=== PATIENT | female | born 1975 | race Caucasian/White ===

== ENCOUNTER → 2017-04-08 16:30 | Outpatient (CLI) | payer OTHER, SELFPAY ==
--- NOTE | 2017-04-08 16:37 | RAD_ITS ---
STUDY: X-RAY - LUMBAR SPINE REASON FOR EXAM: Female, 42 years old. Low back pain TECHNIQUE: 5 view(s) of the lumbar spine were obtained. COMPARISON: None FINDINGS: Normal lumbar lordosis. There is no substantial scoliosis. There is a normal alignment of the vertebrae. Stool throughout the colon. There is multilevel endplate spondylosis of the lumbar vertebrae. Normal disc space heights. The soft tissue structures are unremarkable. RAD/L/S Spine Min 4 Views IMPRESSION: There is endplate spondylosis of the vertebral body. Electronically Signed: Uriel Love MD at 16:59 EST , Service support ,
== END ==
PROVIDERS: Family Provider Family Medicine; PCP Family Medicine; Visit Provider Family Medicine
DX: M54.5 Low back pain (principal)
CPT/HCPCS: 72110

== ENCOUNTER → 2017-04-17 10:52 | Outpatient (CLI) | payer OTHER, SELFPAY ==
--- NOTE | 2017-04-17 11:01 | VDLE_ITS ---
Reason For Study: LEG PAIN AND SWELLING RIGHT LEFT GSV is normal. CFV is compressible, spontaneous, phasic, CFV is compressible, spontaneous, phasic, competent, and demonstrates normal competent and demonstrates normal augmentation. augmentation. FV is compressible, spontaneous, phasic, competent and demonstrates normal augmentation. POP V is compressible, spontaneous, phasic, competent and demonstrates normal augmentation. T/P Trunk is compressible. PTV is compressible. RT PerV is compressible. Procedure Exam performed in department. A preliminary report was called and/or faxed to Dr. Frederick. Interpretation Summary Deep veins of the right lower extremity are patent and compressible segmentally. There is no evidence of right lower extremity deep vein thrombosis. Valvular competence appears intact within the proximal deep venous system on the right . The right greater saphenous vein appears patent and compressible segmentally. Ordering Physician: Cyn Frederick Referring Physician: Cyn Frederick Performed By: Rayne Vines RVT
== END ==
PROVIDERS: Family Provider Family Medicine; PCP Family Medicine; Visit Provider Family Medicine
DX: M79.604 Pain in right leg (principal); R60.9 Edema, unspecified
CPT/HCPCS: 93971

== ENCOUNTER → 2017-05-21 11:21 | Outpatient (CLI) | payer OTHER, SELFPAY ==
[2017-05-22 16:05] LABS: ALB/GLOB Ratio 0.8 RATIO (0.9-2.4); AST(SGOT) 25 U/L (15-37); Alanine Aminotransfer ALT/SGPT 39 U/L (13-56); Albumin, Serum 3.2 g/dL (3.2-5.0); Alkaline Phosphatase 79 U/L (45-117); Anion Gap 7 (5-15); BUN 14 mg/dL (7-18); BUN/Creat Ratio 16.1 RATIO (10-20); Calcium,Total 8.4 mg/dL (8.5-10.1); Chloride 101 mmol/L (98-107); Cholesterol 170 mg/dL (200); Creatinine, Serum 0.87 mg/dL (0.55-1.02); EST Glomerular Filtration Rate 75 mL/min (>60); Est Glom Filt Rate - Afr Amer 91 mL/min (>60); Globulin 3.9 g/dL (2.2-4.2); Glucose 98 mg/dL (74-106); High Density Lipoprotein 52 mg/dL; Potassium 3.8 mmol/L (3.5-5.1); Protein, Total 7.1 g/dL (6.4-8.2); Sodium Level 137 mmol/L (136-145); Triglycerides 99 mg/dL; Very Low Density Lipoprotein 20 mg/dL (5-40)
[2017-05-22 16:14] LABS: Absolute Lymphocyte Count 2.11 X10^3/ul (0.83-4.51); Absolute Neutrophil Count 7.4 X10^3/uL (2.0-7.7); Basophil# 0.02 X10^3/uL; Basophil% 0.2 % (0-1); Eosinophil# 0.15 X10^3/uL; Eosinophils% 1.4 % (0-5); Hemoglobin 12.8 g/dl (12.0-15.0); Lymphocyte # 2.11 X10^3/ul (4.0); Lymphocyte % 20.1 % (19-41); Mean Corp Hgb Conc 32.8 g/gl (32-36); Mean Corpuscular Volume 88.4 fL (81-99); Mean Platelet Vol. 10.9 fl (6.2-12.0); Monocyte# 0.76 X10^3/uL; Monocyte% 7.2 % (0-10); Neutrophil % 70.6 % (47-70); Platelet Count 281 K/mm3 (150-450); RBC Distribution Width CV 13.3 % (11.6-14.6); RBC Distribution Width SD 42.8 fl (35.1-43.9); Red Blood Count 4.41 M/mm3 (4.2-5.4); White Blood Count 10.5 K/mm3 (4.4-11.0)
[2017-05-22 16:19] LABS: POSITIVE COUNT NO; POSITIVE DIFFERENTIAL NO; POSITIVE MORPHOLOGY NO
== END ==
PROVIDERS: Family Provider Family Medicine; PCP Family Medicine; Visit Provider Family Medicine
DX: I10 Essential (primary) hypertension (principal)
CPT/HCPCS: 36415; 80053; 80061; 85025

== ENCOUNTER 2017-05-22 10:00 | Outpatient (RCR) | payer OTHER, SELFPAY ==
--- NOTE | 2017-04-28 08:57 | HP.PTEVAL_ITS ---
Patient's Visit Information CORTEZ HART is a 42 year old F referred to Physical Therapy by DO ALEXIS Rosario with a diagnosis of LBP. Date of Evaluation: 04/28/17 Physical Therapist: Chayo Mcgraw - Visit Plan Frequency: 2x /Week Duration: 4 Weeks Plan: 2X/ week for 4 weeks for R leg pull, piriformis stretches, core stability , functional activities with HEP - Subjective Subjective: Pt reports that she has had back pain for about 5 months. If she sits or stands for a long period of time. If she is out walking the dog she has to stop and stretch. She went to the Chiropractor and she did adjustments and electro therapy and that did not help at all. It did not make it worse. She can sit for about 15 min and then has to change position. She can stand for about 30 min (standing or walking around). 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 She has no leg symptoms. No leg weakness or N&T. She is sleeping for the most part at night but the worst part is laying down at night. They did do an x-ray and it showed some arthritic changes. She walks almost everyday. Pain was not as frequent with steroids but still had the pain. - Pain Back pain Pain Intensity (Out of 10): 5 Pain Intensity Range: 9 - Objective Gait: WBOS with gait... heels not touching. Normal gait pattern. LE MMT: B hip flex 4/5, B knee ext 4/5, B knee flexion 4/5 B, B hip abd 4/5, full ROM bridge. R leg is longer than the L leg. Shot gun X 2 did not change the significant difference in leg length. Did R leg pull and B manual piriformis stretches and pt did feel better after the above with gait. Trunk AROM: flexion 75%, Ext 100%, Rot B 75%, SB B 75%. Patellar DTR's 2+/3 - Goals Goal 1:: I HEP Goal Time Frame: 4-6 Weeks Goal 2:: Decrease back pain with sitting or standing to 2/10 Goal Time Frame: 4-6 Weeks Goal 3:: Be able to walk the Dog for greater than 30 min without having to sit due to back pain. Goal Time Frame: 4-6 Weeks - Rehabilitation Potential Rehabilitation Potential: Good - Anticipated Interventions Patient/Client Instruction: Educate patient on: Condition, Plan of Care For the Purpose of:: To decrease pain Therapeutic Exercise to Include: Strength training, Body mechanics, Postural training, Flexibilty training, Passive ROM, Active ROM, Dynamic Lumbar Stabilization For the Purpose of:: To decrease pain, To increase ROM, To improve nutrient delivery to tissue, To improve muscle performance and motor function, To improve ability to perform ADL's, To increase tolerance to activity/condition/ position, To improve ability of physical actions for home/community/work/leisure , To improve health of tissue, To decrease soft tissue restriction, To improve health and function Manual Therapy Techniques to Include: Mobilization, Soft tissue mobilization For the Purpose of:: To decrease pain, To increase ROM, To improve muscle performance and motor function, To improve ability to perform ADL's, To increase tolerance to activity/condition/position, To improve gait and locomotor functions, To improve health of tissue, To decrease soft tissue restriction, To increase flexibility/ROM IF ES: Yes Cryotherapy (ice pack, ice massage): Yes Thermo therapy (hot pack): Yes Ultrasound (thermal/non thermal): Yes For the Purpose of:: To decrease pain, To decrease swelling/inflammation, To increase ROM, To improve nutrient delivery to tissue Thank you for the opportunity to evaluate your patient. For Medicare and Medicare HMO plans, please review the plan of care and approve it. It will need to be FAXED BACK to us at [phone] for Medicare purposes. Please let me know if there are questions or concerns regarding this plan of care. Physician Signature: Date:
--- NOTE | 2017-07-25 14:08 | HP.PTDCNRP_ITS ---
HP - Discharge Summary (1) - Patient Information CORTEZ HART was seen in my office for initial evaluation on 04/28/17. The following Plan of Care was established for this patient: Initial Frequency: 2x /Week Initial Duration: 4 Weeks - Anticipated Interventions Patient/Client Instruction: Educate patient on: Condition, Plan of Care For the Purpose of:: To decrease pain Therapeutic Exercise to Include: Strength training, Body mechanics, Postural training, Flexibilty training, Passive ROM, Active ROM, Dynamic Lumbar Stabilization For the Purpose of:: To decrease pain, To increase ROM, To improve nutrient delivery to tissue, To improve muscle performance and motor function, To improve ability to perform ADL's, To increase tolerance to activity/condition/ position, To improve ability of physical actions for home/community/work/leisure , To improve health of tissue, To decrease soft tissue restriction, To improve health and function Manual Therapy Techniques to Include: Mobilization, Soft tissue mobilization For the Purpose of:: To decrease pain, To increase ROM, To improve muscle performance and motor function, To improve ability to perform ADL's, To increase tolerance to activity/condition/position, To improve gait and locomotor functions, To improve health of tissue, To decrease soft tissue restriction, To increase flexibility/ROM IF ES: Yes Cryotherapy (ice pack, ice massage): Yes Thermo therapy (hot pack): Yes Ultrasound (thermal/non thermal): Yes For the Purpose of:: To decrease pain, To decrease swelling/inflammation, To increase ROM, To improve nutrient delivery to tissue This patient was last seen in our office 05/22/17. Pertinent comments regarding their Physical therapy will appear below: DC PT as pt did not reschedule At this point I will be discontinuing this patient from physical therapy. I would be happy to see this patient again in the future if found appropriate by the physician. Thank you! Chayo Mcgraw
== END 2017-05-22 19:00 | disposition home or self-care (01) ==
LOC: PT 10:00
PROVIDERS: Family Provider Family Medicine; PCP Family Medicine; Visit Provider Family Medicine
DX: M54.5 Low back pain (principal)
CPT/HCPCS: 97110; 97161

== ENCOUNTER → 2017-07-04 20:13 | Outpatient (CLI) | payer OTHER, SELFPAY | PROVIDERS: Family Provider Family Medicine; PCP Family Medicine; Visit Provider Family Medicine | DX: G47.10 Hypersomnia, unspecified (principal); E66.01 Morbid (severe) obesity due to excess calories; R60.0 Localized edema | CPT/HCPCS: 95810 ==

== ENCOUNTER → 2017-07-11 15:40 | Outpatient (CLI) | payer OTHER, SELFPAY ==
[2017-07-11 17:30] LABS: Anion Gap 8 (5-15); BUN 13 mg/dL (7-18); BUN/Creat Ratio 11.2 RATIO (10-20); Calcium,Total 8.7 mg/dL (8.5-10.1); Chloride 101 mmol/L (98-107); Creatinine, Serum 1.16 mg/dL (0.55-1.02); EST Glomerular Filtration Rate 54 mL/min (>60); Est Glom Filt Rate - Afr Amer 65 mL/min (>60); Glucose 150 mg/dL (74-106); Potassium 3.3 mmol/L (3.5-5.1); Sodium Level 139 mmol/L (136-145)
== END ==
PROVIDERS: Family Provider Family Medicine; PCP Family Medicine; Visit Provider Family Medicine
DX: I10 Essential (primary) hypertension (principal)
CPT/HCPCS: 36415; 80048

== ENCOUNTER → 2017-07-18 20:11 | Outpatient (CLI) | payer OTHER, SELFPAY | PROVIDERS: Family Provider Family Medicine; PCP Family Medicine; Visit Provider Family Medicine | DX: G47.10 Hypersomnia, unspecified (principal); R60.0 Localized edema; E66.01 Morbid (severe) obesity due to excess calories; R60.9 Edema, unspecified | CPT/HCPCS: 95811 ==

== ENCOUNTER → 2017-08-02 13:37 | Outpatient (CLI) | payer OTHER, SELFPAY ==
--- NOTE | 2017-08-02 13:37 | DT_ITS ---
This patient was seen during an EMR downtime July 28, 2017 - August 04, 2017. This patient may have a combination of paper and electronic documentation or all paper documentation. All documentation is viewable within the e-chart portion of [facility] for each patient visit.
[2017-08-05 01:40] LABS: Potassium 3.4 mmol/L (3.5-5.1)
== END ==
PROVIDERS: Family Provider Family Medicine; PCP Family Medicine; Visit Provider Family Medicine
DX: E87.6 Hypokalemia (principal)
CPT/HCPCS: 36415; 84132

== ENCOUNTER 2018-07-07 16:47 | Emergency (ER) | payer OTHER, SELFPAY ==
[2018-07-07 16:49] VITALS: BP 164/82; PULSE 79; RESP 18; TEMP 36.1; O2SAT 98; BMI 40.8
--- NOTE | 2018-07-07 17:04 | CT_ITS ---
STUDY: CT BRAIN WITHOUT CONTRAST REASON FOR EXAM: Female, 43 years old. Dizziness RADIATION DOSAGE (If Supplied By Facility): DLP = ( 779.24 ) mGycm TECHNIQUE: Transaxial CT imaging of the brain was performed without administration of intravenous contrast material. Individualized dose optimization techniques were used for this CT. COMPARISON: None. FINDINGS: There is no acute bleed or infarct. There are normal white matter tracts. The ventricles are normal in configuration. There is no hydrocephalus. The visualized paranasal sinuses are clear. The mastoid air cells are well aerated. There is no skull fracture. CT/Brain/Head without Contrast IMPRESSION: No acute intracranial abnormality. Electronically Signed: Wally Hair, at 17:43 EDT Tel , Service support ,
--- NOTE | 2018-07-07 17:05 | RAD_ITS ---
STUDY: X-RAY CHEST REASON FOR EXAM: Female, 43 years old. Chest pain TECHNIQUE: PA and lateral views of the chest COMPARISON: None. FINDINGS: The lungs are clear. There are no pleural effusions. There is no pneumothorax. The heart is normal in size. The visualized osseous structures are within normal limits. RAD/Chest PA and Lateral IMPRESSION: No acute thoracic pathology. Electronically Signed: Wally Hair, at 18:00 EDT Tel , Service support ,
--- NOTE | 2018-07-07 17:05 | EKG12_ITS ---
Test Reason : HTN Blood Pressure : / mmHG Vent. Rate : 069 BPM Atrial Rate : 069 BPM P-R Int : 154 ms QRS Dur : 088 ms QT Int : 424 ms P-R-T Axes : 057 045 008 degrees QTc Int : 454 ms Normal sinus rhythm Normal ECG Confirmed by AN RODRIGUEZ ([id number]), scientific publications editor MARIELLA PARSON ([id number]) on 07/13/2018 3:31:58 PM Referred By: CANDELARIA Confirmed By:AN RODRIGUEZ
--- NOTE | 2018-07-07 17:18 | ED.DCSUM_ITS ---
- ER Visit Summary Date of Service: 07/07/18 Chief Complaint: Hypertension, dizziness History of Present Illness: The patient is a 43 F who noted mild vertigo symptoms this morning. The school nurse checked her blood pressure throughout the day. Readings are 140/105, 171/115, 158/100, 190/99. Patient states that her vertigo is currently improved which is a mild headache and some nausea. Patient does have a history of hypertension and takes hydrochlorothiazide 12.5 mg. There has not been any recent changes to her medication and she did take her dose this morning. Physical Examination: Vital signs significant for blood pressure of 164/82, otherwise unremarkable. Patient sitting upright in bed in no acute distress. Heart is regular rate and rhythm. Lung sounds are clear. Abdomen is soft nontender. Neuro exam is unremarkable. Test Results: EKG is sinus at 69 with no sign of acute ischemia. CBC and chemistry studies normal. Two-view chest x-ray shows no acute pathology. CT the head shows no acute abnormality. Emergency Department Course and Treatment: On repeat evaluation blood pressure is 142/71 with a heart rate of 78. She reports very mild headache. She be given some Tylenol. She will keep track of her blood pressures over the next several days and take this log to her doctor with her. Treatment Plan: [] Disposition: Discharge Impression: 1. Hypertension, improving 2. Mild cephalgia This note was generated with [employer] dictation software. It may contain incorrect words, spelling, and punctuation that were not noted in review of the chart prior to signing ED Disposition - Plan for ED Patient: Disposition: Home or Assisted Living Instructions: ED HTN Established Referrals: Asuncion Ordaz MD [Family Provider] - 1 Week
[2018-07-07] MEDS: 0.9% Normal Saline 1,000 ML 150 ML IV (17:20)
[2018-07-07 17:32] LABS: Absolute Lymphocyte Count 2.39 X10^3/ul (0.83-4.51); Absolute Neutrophil Count 5.9 X10^3/uL (2.0-7.7); Basophil# 0.02 X10^3/uL; Basophil% 0.2 % (0-1); Eosinophil# 0.14 X10^3/uL; Eosinophils% 1.5 % (0-5); Hemoglobin 12.7 g/dl (12.0-15.0); Lymphocyte # 2.39 X10^3/ul (4.0); Lymphocyte % 26.2 % (19-41); Mean Corp Hgb Conc 32.6 g/gl (32-36); Mean Corpuscular Hgb 28.2 pg (27.0-32.0); Mean Corpuscular Volume 86.5 fL (81-99); Mean Platelet Vol. 9.9 fl (6.2-12.0); Monocyte# 0.62 X10^3/uL; Monocyte% 6.8 % (0-10); Neutrophil # 5.92 X10^3/uL (2.7-7.7); Neutrophil % 64.9 % (47-70); Platelet Count 331 K/mm3 (150-450); RBC Distribution Width CV 13.9 % (11.6-14.6); RBC Distribution Width SD 43.8 fl (35.1-43.9); Red Blood Count 4.51 M/mm3 (4.2-5.4); White Blood Count 9.1 K/mm3 (4.4-11.0)
[2018-07-07 17:39] LABS: POSITIVE COUNT NO; POSITIVE DIFFERENTIAL NO; POSITIVE MORPHOLOGY NO
[2018-07-07 17:55] LABS: Anion Gap 8 (5-15); BUN 14 mg/dL (7-18); Calcium,Total 8.8 mg/dL (8.5-10.1); Chloride 102 mmol/L (98-107); Creatinine, Serum 0.88 mg/dL (0.55-1.02); EST Glomerular Filtration Rate 74 mL/min (>60); Est Glom Filt Rate - Afr Amer 90 mL/min (>60); Estimated Creatinine Clearance 75.58 ml/min; Glucose 101 mg/dL (74-106); Potassium 3.6 mmol/L (3.5-5.1); Sodium Level 139 mmol/L (136-145)
[2018-07-07 17:58] VITALS: BP 142/71; PULSE 78; RESP 15; O2SAT 98
[2018-07-07] MEDS: Acetaminophen 500 MG Tablet 1000 MG PO (18:45)
[2018-07-07 18:46] VITALS: BP 148/90; PULSE 87; RESP 20; O2SAT 99
== END 2018-07-07 18:53 | disposition home or self-care (01) ==
PROVIDERS: Emergency Provider Emergency Medicine; Family Provider Internal Medicine; PCP Internal Medicine
DX: I10 Essential (primary) hypertension (principal); R11.0 Nausea; Z79.899 Other long term (current) drug therapy
CPT/HCPCS: 70450; 71046; 80048; 85025; 93005; 96360; 96361; 99285; J7030; A4216

== ENCOUNTER → 2019-05-27 09:55 | Outpatient (CLI) | payer OTHER, SELFPAY ==
--- NOTE | 2019-05-27 09:58 | RAD_ITS ---
STUDY: X-RAY - ESOPHAGUS (BARIUM SWALLOW) WITH FLUOROSCOPY REASON FOR EXAM: Female, 44 years old. DYSPHAGIA. TROUBLE TAKING PILLS X 3 WKS. GAG RELEX MORE SENSITIVE. 16 IMAGES TECHNIQUE: 16 view(s) of the esophagus were obtained following swallowing of barium. FLUOROSCOPY TIME (if supplied): (0:28) minutes/seconds COMPARISON: None. FINDINGS: There is no demonstrated esophageal foreign body. There is no demonstrated stricture or mucosal abnormality. Normal gastroesophageal junction, without a demonstrated hiatal hernia. The patient ingested a 12 mm tablet of barium without any difficulty. Normal visualized aortic arch and descending thoracic aorta. Normal visualized pulmonary parenchyma. Normal visualized osseous structures of the thorax. RAD/Esophagus Dual Contrast IMPRESSION: Normal plain film x-ray examination (barium swallow) of the esophagus. Electronically Signed: Bobby Calle, at 12:32 EDT , Service support ,
== END ==
PROVIDERS: PCP Internal Medicine; Referring Provider Nurse Practitioner Adult Health; Visit Provider Nurse Practitioner Adult Health
DX: K21.9 Gastro-esophageal reflux disease without esophagitis (principal); R13.10 Dysphagia, unspecified
CPT/HCPCS: 74220; 74221

== ENCOUNTER 2020-05-13 14:54 | Emergency (ER) | payer OTHER, SELFPAY ==
[2020-05-13 14:54] VITALS: BP 160/65; PULSE 88; RESP 16; TEMP 36.4; O2SAT 98; BMI 38.2
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
[2020-05-13] MEDS: HYDROcodone Bitartrate/Apap 5/325 Tablet PO (15:15)
--- NOTE | 2020-05-13 15:20 | RAD_ITS ---
STUDY: X-RAY - LEFT TIBIA AND FIBULA REASON FOR EXAM: Female, 45 years old. fall, pain TECHNIQUE: 2 view(s) of the tibia and fibula were obtained. COMPARISON: None. FINDINGS: Normal visualized tibia. Normal visualized fibula. There is anterior soft tissue swelling consistent with a soft tissue injury. RAD/Tibia & Fibula 2 Views IMPRESSION: Anterior soft tissue swelling. No demonstrated fracture. Electronically Signed: Juan Han MD ([place]) at 15:41 EDT , Service support ,
--- NOTE | 2020-05-13 15:20 | RAD_ITS ---
STUDY: X-RAY - RIGHT RADIUS AND ULNA REASON FOR EXAM: Female, 45 years old. fall TECHNIQUE: 2 view(s) of the forearm. COMPARISON: None. FINDINGS: There is no demonstrated soft tissue swelling. Normal visualized radius. Normal visualized ulna. RAD/Forearm 2 Views IMPRESSION: Normal x-ray examination of the radius and ulna. Electronically Signed: Juan Han MD ([place]) at 15:40 EDT , Service support ,
--- NOTE | 2020-05-13 15:20 | RAD_ITS ---
STUDY: X-RAY - RIGHT SHOULDER REASON FOR EXAM: Female, 45 years old. pain TECHNIQUE: 3 view(s) of the shoulder. COMPARISON: None. FINDINGS: Normal glenohumeral articulation. There is degenerative arthrosis of the acromioclavicular joint without inferior osseous spur formation. Normal acromion. Normal humeral head and visualized proximal humerus. The soft tissue structures are unremarkable. Normal visualized pulmonary apex. RAD/Shoulder min 2 Views IMPRESSION: No demonstrated fracture or malalignment. Electronically Signed: Juan Han MD ([place]) at 15:40 EDT , Service support ,
--- NOTE | 2020-05-13 15:28 | RAD_ITS ---
EXAM: XR LEFT SHOULDER COMPLETE, 2 OR MORE VIEWS CLINICAL INDICATION: PAIN TECHNIQUE: Two or more views of the left shoulder. This report was created using [employer] report generation technology. COMPARISON: None. FINDINGS: BONES/JOINTS: Linear lucency of the glenoid and subcoracoid scapula could represent overlying soft tissue artifact versus fracture. Arthrosis of the acromioclavicular joint with inferior spurring. SOFT TISSUES: Unremarkable. No soft tissue swelling or gas. No radiopaque foreign body. RAD/Shoulder min 2 Views IMPRESSION: Linear lucency of the glenoid and subcoracoid scapula could represent overlying soft tissue artifact versus fracture. Electronically Signed: Juan Han MD ([place]) at 15:39 EDT , Service support ,
--- NOTE | 2020-05-13 15:58 | ED.DEP ---
ED Disposition - Plan for ED Patient: Instructions: ED Shoulder Sprain Prescriptions: Hydrocodone Bitart/Apap 5-325 [[place] 5MG-325MG] 1 tablet PO Q6H PRN PRN 3 Days #10 tab PRN Reason: Pain Prescription Printed Referrals: Asuncion Ordaz MD [Primary Care Provider] - Chirag Mendieta DO [STAFF PHYSICIAN] -
[2020-05-13 16:19] VITALS: BP 133/73; PULSE 72; RESP 15
== END 2020-05-13 16:20 | disposition home or self-care (01) ==
LOC: ED 15:51
PROVIDERS: Emergency Provider Emergency Medicine; PCP Internal Medicine
DX: S40.012A Contusion of left shoulder, initial encounter (principal); S40.011A Contusion of right shoulder, initial encounter; S50.11XA Contusion of right forearm, initial encounter; S80.812A Abrasion, left lower leg, initial encounter; V86.69XA Passenger of other special all-terrain or other off-road motor vehicle injured in nontraffic accident, initial encounter; Y93.89 Activity, other specified; Y92.9 Unspecified place or not applicable; Y99.9 Unspecified external cause status; E11.9 Type 2 diabetes mellitus without complications; I10 Essential (primary) hypertension; Z79.899 Other long term (current) drug therapy
CPT/HCPCS: 73030; 73090; 73590; 90715; 99283

== ENCOUNTER 2021-07-19 07:06 | Day surgery (SDC) | payer OTHER, SELFPAY ==
--- NOTE | 2021-07-18 12:47 | PCM.HP.BLA ---
History and Physical Date of Admission: 07/19/21 Pre-Op History and Physical ? HPI: The patient is a 46 year old female presenting for discussion for abnormal uterine bleeding and endometrial biopsy. Patient would like to proceed with surgical intervention. Patient would also like contraception-IUD placement. ? Pre-operative visit. She is scheduled for Hysteroscopy D&C and Polypectomy, IUD insertion , for AUB, EM polyp, Contraception on 07/19/21. Procedure discussed along with risks, benefits and complications. Other alternatives discussed for management. Consent form signed? Yes. ? ? PAST MEDICAL HISTORY PAST MEDICAL HISTORY Diagnosis Date ? Acute gastritis without mention of hemorrhage ? ? Adjustment disorder with depressed mood ? ? Diabetes (HCC) 2020 ? Female infertility of unspecified origin ? ? Female infertility ? Other and unspecified ovarian cyst ? ? Ovarian cyst ? ? PAST SURGICAL HISTORY PAST SURGICAL HISTORY Procedure Laterality Date ? FASCIECTOMY PLANTAR FASCIA PARTIAL SPX ? ? RIGHT FOOT ? KERATOMILEUSIS ? 06/20/11 ? LASIK/IL (Laser in situ Keratomileusis with Intralase) ? ? ? CURRENT MEDICATIONS Current Outpatient Medications Medication Sig Dispense Refill ? lisinopril (ZESTRIL, PRINIVIL) 20 mg tablet Take 1 tablet by mouth once daily. 90 tablet 0 ? BD INSULIN PEN NEEDLE UF 31 gauge x 07/09 USE 1 EACH ONCE DAILY. 100 Each 3 ? hydroCHLOROthiazide (HYDRODIURIL, ESIDRIX) 25 mg tablet TAKE 1 TABLET BY MOUTH EVERY DAY 30 tablet 2 ? DULoxetine (CYMBALTA) 60 mg capsule Take 1 capsule by mouth once daily. 30 capsule 5 ? blood sugar diagnostic (ACCU-CHEK ALMA PLUS TEST STRP) test strip TEST BLOOD SUGAR(S) 1 DAILY. DX: UNCONTROLLED DM TYPE 2. INSULIN: NO 50 Strip 11 ? liraglutide (VICTOZA) 0.6 mg/ 0.1 ml subcutaneous pen injector Inject 1.2 mg subcutaneously once daily. 5 Each 1 ? baclofen (LIORESAL) 10 mg tablet Take 1 tablet by mouth three times daily as needed (muscle spasms). 270 tablet 2 ? omeprazole (PRILOSEC) 40 mg capsule Take 1 capsule by mouth once daily. 90 capsule 3 ? calcium carbonate (CALCIUM 500) 500 mg calcium (1,250 mg) tablet Take 1 tablet by mouth once daily. ? ? ? Cholecalciferol, Vitamin D3, (VITAMIN D) 25 mcg (1,000 unit) cap Take 1,000 Units by mouth once daily. ? ? ? ibuprofen (MOTRIN) 800 mg tablet Take 1 tablet by mouth every 8 hours as needed. FOR PAIN. 60 tablet 2 ? Blood-Glucose Meter Dispense 1 kit 1 Each 0 ? carboxymethyl/gly/poly80/PF (REFRESH OPTIVE ADVANCED, PF, OPHTHALMIC) Use 1 Drop in both eyes twice daily. ? ? ? OMEG3/EPA/DHA/FISH OIL/FLAX/E (THERA TEARS NUTRITION ORAL) Take by mouth. ? ? ? MULTIVITAMIN ORAL Take by mouth. ? Lancets lancets Test blood sugar(s) 1x daily. Dx: Uncontrolled DM type 2. Insulin: No 100 Each 11 ? fluticasone (FLONASE) 50 mcg/actuation nasal spray Use 2 Sprays in each nostril once daily. Rinse mouth after use. (Patient not taking: Reported on 02/14/2021 ) 1 Each 0 ? predniSONE (DELTASONE) 10 mg tablet 6 tabs po day 1, then 5 tabs day 2, 4 tabs day 3, 3 tabs day 4, 2 tabs day 5, 1 tab day 6. (Patient not taking: Reported on 02/14/2021 ) 21 tablet 0 ? amoxicillin (POLYMOX, AMOXIL) 500 mg capsule ? fluticasone (FLONASE) 50 mcg/actuation nasal spray Use 2 Sprays in each nostril once daily. Rinse mouth after use. (Patient not taking: Reported on 10/16/2020 ) 1 Bottle 0 ? No current facility-administered medications for this visit. ? ? ALLERGIES: Codeine ? PERSONAL HISTORY: SOCIAL HISTORY Social History ? Tobacco Use ? Smoking status: Never Smoker ? Smokeless tobacco: Never Used Substance Use Topics ? Alcohol use: Yes ? ? Comment: 3 times per year, rare ? Drug use: No ? FAMILY HISTORY: FAMILY HISTORY FAMILY HISTORY Problem Relation Age of Onset ? Diabetes Mother ? ? Hypertension Mother ? ? Heart Father ? ? thyroid- ? ? Hypertension Father ? ? other (Other) Father ? ? spinal stenosis ? Cancer Paternal Grandmother ? ? Cancer Maternal Grandmother ? ? throat ? Heart Paternal Grandfather ? ? other (Hypothyroidism) Sister ? ? Heart Sister ? ? Headache Sister ? ? other (sebaceous adenoma) Son ? ? benign ? ? REVIEW OF SYMPTOMS: negative except as noted above PHYSICAL EXAMINATION: ? VITALS: Blood pressure 132/72, height 5' 6 (1.676 m), weight 248 lb (112.5 kg), last menstrual period 03/27/2021. ? GENERAL: The patient is well nourished, well hydrated in no acute distress. , The patient is oriented to time, place, and person. NECK: full range of motion ? IMPRESSION: AUB, EM polyp, contraception ? PLAN: Hysteroscopy, D&C, polypectomy, insertion of a Mirena IUD ? Pt has been counseled on risks/benefits and alternatives of surgery including but not limited to anesthesia, bleeding, infection, Uterine perforation with subsequent injury to pelvic structures including bowel, bladder, ureters and vessels. Pt wishes to proceed with surgery at this time. ? Pre and Post op instructions reviewed ? RTO 4-6 weeks pOst op for annual and IUD check ? ? I have reviewed and updated past medical and surgical history, medications and allergies Charis Butler MD
[2021-07-19] VITALS (7 sets, daily range): BP systolic 113–140; BP diastolic 44–79; PULSE 65–75; RESP 15–18; TEMP 36.4–36.6; O2SAT 89–99; BMI 40.0
[2021-07-19 07:27] LABS: Internal QC Validated? YES +Cl - CLEAR BKGD; Pregnancy, Urine Negative Negative
[2021-07-19] MEDS: Lactated Ringers 1,000 ML 15 ML IV (07:35)
[2021-07-19 07:41] LABS: Hemoglobin 12.6 g/dL (12.0-15.0); Mean Corp Hgb Conc 32.3 g/dL (32-36); Mean Corpuscular Hgb 28.3 pg (27.0-32.0); Mean Corpuscular Volume 87.6 fL (81-99); Mean Platelet Vol. 10.5 fl (6.2-12.0); Platelet Count 337 K/mm3 (150-450); RBC Distribution Width CV 13.4 % (11.6-14.6); RBC Distribution Width SD 43.2 fl (35.1-43.9); Red Blood Count 4.45 M/mm3 (4.2-5.4); White Blood Count 9.2 K/mm3 (4.4-11.0)
[2021-07-19 07:41] LABS: Bedside Glucose 153 mg/dL (74-106)
[2021-07-19 07:49] LABS: Anion Gap 8 (5-15); BUN 18 mg/dL (7-18); BUN/Creat Ratio 18.1 RATIO (10-20); Chloride 100 mmol/L (98-107); Creatinine, Serum 0.99 mg/dL (0.55-1.02); EST Glomerular Filtration Rate 63 mL/min (>60); Est Glom Filt Rate - Afr Amer 77 mL/min (>60); Estimated Creatinine Clearance 65.06 ml/min; Glucose 133 mg/dL (74-106); Potassium 3.5 mmol/L (3.5-5.1); Sodium Level 139 mmol/L (136-145)
--- NOTE | 2021-07-19 08:44 | OP.PCM_ITS ---
Problems Associated Problem List Diagnoses (1) Abnormal uterine bleeding (AUB): (2) Endometrial polyp: Report of Operation Date of Procedure: 07/19/21 Pre-Operative Diagnosis: AUB, Endometrial polyp Post-Operative Diagnosis: AUB, Endocervical polyp, uterine Synechiae Surgery/Procedure Performed:: Hysteroscopy, D&C, Polypectomy, IUD mirena Insertion Description of Surgical Findings:: Tubal ostia noted. Endocervical polyp. Synechiae at fundual aspect of uterus Surgeon: Charis Caceres Type of Anesthesia: MAC Specimen's removed: Endometrial curetting, Endometrial polyp Estimated Blood Loss (mL): <5 Fluids Replaced: 300 Description of Procedure: Informed consent was obtained the patient was taken the operating room she was placed in supine position. She was given anesthesia. She was then placed in the [facility] where she was prepped and draped in the normal sterile fashion. At this time the weighted speculum was placed in the posterior fornix of vagina. Single-tooth tenaculum was used to gently grasp the anterior lip the cervix. At this time the uterine cavity was sounded to approximately 8 cm. Gentle dilatation was performed once adequate dilatation of the cervix was achieved the hysteroscope using normal saline as a distention medium was placed. enodocervical polyp noted. synechiae at uterine fundus noted. Tubal ostia visualized. . At this time the Symphion resecting device used to obtain endometrial curettings and to perform polypectomy. Tissue will be sent to pathology for evaluation. MIRENA IUD inserted to uterine fundus, strings cut to 2.5cm from OS. Tenaculum removed. Good hemostasis. Instrument, lap count correct x 2. Vaginal Sweep was negative. Fluid deifict 350cc LOT # [id number] EXP Sep 2023 Grafts/Implants Used: MIRENA IUD Procedure Start Time: 09:42 Procedure Stop Time: 09:51 Complications none Admit VTE Documentation VTE Present on Admission: Yes VTE Mechan Device Prophylaxis: SCD's VTE Pharm Prophylaxis ordered?: No Reason prophylaxis not ordered:: Procedure Not Indicated
--- NOTE | 2021-07-19 08:44 | EX.PCM.DISCH ---
Discharge Instructions Procedure D&C Diet Discharge Diet: No restrictions Activity May resume sexual activity in: 1 week Dressing / Incision Call your doctor if you observe: Fever of 101 or Higher, Inability to urinate, Using more than 1 pad per hour and Uncontrolled pain Follow Up Care Please Follow Up With: Charis Caceres MD When: 1-2 weeks post OP if you need an appointment please call [phone] Test Results: Test results from this visit will be discussed in further detail at your follow-up appointment, if applicable. Discharge Plan Admission Attending Provider: Charis Caceres Primary Care Provider: Asuncion Ordaz Discharge Orders/Prescriptions Prescriptions: No Action hydrochlorothiazide 12.5 tablet 25 mg PO DAILY RF: 0 biotin 5,000 MCG tablet, sublingual 5,000 mcg sublingual DAILY RF: 0 lisinopril 20 MG tablet 20 mg PO DAILY RF: 0 duloxetine 60 MG capsule,delayed release(DR/EC) 60 mg PO DAILY RF: 0 calcium carbonate-vitamin D3 [Calcium + D] 600 mg-5 mcg (200 unit) Tablet 1 tab PO BID RF: 0 omeprazole 40 mg capsule,delayed release(DR/EC) 40 mg PO DAILY RF: 0 cholecalciferol (vitamin D3) [Vitamin D3] 25 mcg (1,000 unit) Tablet 25 mcg PO DAILY RF: 0 TheraTears Nutrition [phone] po-dp-xr-unit Capsule 3 cap PO DAILY RF: 0 Victoza 2-Pasquale 0.6 mg/0.1 mL (18 mg/3 mL) pen injector 12 mg SUBCUT DAILY RF: 0 baclofen 20 mg Tablet 20 mg PO TID RF: 0
--- NOTE | 2021-07-19 08:45 | EMB_PTH ---
PATIENT: CORTEZ HART LOC: [facility] – [place], [place] U#:[id number] AGE/SX: 46/F ROOM: RE07/19/[address]: Dr. Charis Caceres, MDDOB: 1975 BED: DIS: 07/19/2021 SPEC #: [id number] RECD: 07/19/21 11:09 STATUS: DARA PETER #: [id number] JEZ: 07/19/21 08:[address]: Charis Caceres DEPT: SURGICAL PATHOLOGY RECD BY: Jannie Murphy ENTERED: 07/19/21 11:28 SP TYPE: ENDOM BX/C OTHR DR: Asuncion Ordaz MD Tissues: Endometrium, NOS Procedures: Surgery Specimen Level IV HEADER OPERATION: Hysteroscopy, D & C, polypectomy, Symphion, Mirena IUD insertion PRE-OP DIAGNOSIS: Abnormal uterine bleeding, endometrial polyp, contraception TISSUE SUBMITTED: Endometrial polyp and endometrial curettings MICROSCOPIC DIAGNOSIS Endometrial polyp and curettings: Polypoid fragments of disordered proliferative endometrium with focal simple hyperplasia without atypia. Fragments of benign myometrial tissue. LUI:dana 07/20/2021 MICROSCOPIC DESCRIPTION Slides are reviewed. GROSS DESCRIPTION Received in fixative is one container labeled with the patient's name and designated endometrial polyp and endometrial curettings. The specimen consists of multiple irregular fragments of grey soft tissue that in aggregate measure 2.5 x 2 x 0.2 cm. The specimen is totally submitted in one cassette. / JENIFER:dana 07/19/2021 TC:5 CPT: 63592
== END 2021-07-19 10:55 | disposition home or self-care (01) ==
LOC: SDC 07:08 → AC 07:10
PROVIDERS: Anesthesiology; PCP Internal Medicine; Referring Provider Obstetrics & Gynecology; Visit Provider Obstetrics & Gynecology
PROC: 0UB98ZZ Excision of Uterus, Via Natural or Artificial Opening Endoscopic (ICD-10-PCS; CPT 58558; principal; 2021-07-19 08:30)
DX: N85.01 Benign endometrial hyperplasia (principal); E11.9 Type 2 diabetes mellitus without complications; N85.6 Intrauterine synechiae; I10 Essential (primary) hypertension; F32.A Depression, unspecified; Z79.899 Other long term (current) drug therapy
CPT/HCPCS: 58558; 58300; 00952; 80048; 81025; 82962; 85027; 88305; J7120; J2405

== ENCOUNTER 2021-11-27 09:32 | Emergency (ER) | payer OTHER, SELFPAY ==
[2021-11-27 09:33] VITALS: BP 175/84; PULSE 81; RESP 16; TEMP 35.8; O2SAT 98; BMI 42.0
[2021-11-27 10:43] VITALS: BP 154/78; PULSE 71; RESP 17; O2SAT 96
--- NOTE | 2021-11-27 11:12 | EKG12_ITS ---
Test Reason : cp Blood Pressure : / mmHG Vent. Rate : 076 BPM Atrial Rate : 076 BPM P-R Int : 146 ms QRS Dur : 084 ms QT Int : 372 ms P-R-T Axes : 044 024 005 degrees QTc Int : 418 ms Normal sinus rhythm Normal ECG Confirmed by ROB BADILLO, EMANI ([id number]), assignment desk editor CHON SLOAN ([id number]) on 11/29/2021 7:57:18 AM Referred By: Estela Confirmed By:EMANI RIVAS MD
--- NOTE | 2021-11-27 11:12 | RAD_ITS ---
STUDY: X-RAY CHEST REASON FOR EXAM: Female, 46 years old. Chest pain TECHNIQUE: Single AP portable view of the chest. COMPARISON: None. FINDINGS: EKG electrodes are seen. The lungs are clear and expanded. There is no demonstrated pleural abnormality. Normal size heart. Normal mediastinum and [place]. Normal visualized pulmonary arteries. Normal visualized aortic arch and descending thoracic aorta. Normal visualized thoracic spine. Normal visualized ribs, clavicles, and shoulders. There is no demonstrated abnormality of the visualized soft tissue structures of the upper abdomen. RAD/Chest 1 View (Portable) IMPRESSION: Normal x-ray examination of the chest. Electronically Signed: Bobby Calle MD at 11:39 EDT ,
--- NOTE | 2021-11-27 11:13 | ED.VIS.CHEST ---
HPI History of Present Illness Chief Complaint: Chest Pain Informant: patient Narrative Narrative: 46-year-old female presenting to the emergency department chief complaint of chest pain. Patient states that she has had a constant waxing and waning pain in the center part of her chest mostly on the right rating up to her jaw for the past 12+ hours. She notes it began around 1700 hrs. yesterday. She denies any nausea vomiting shortness of breath. She states she has been under a lot of stress recently with the of a family member and a conversation with her ex. She notes a history of diabetes and hypertension. Nothing seems to make this better or worse. No change in exercise tolerance. [facility] Medical History Anxiety Arthritis Back pain CPAP (continuous positive airway pressure) dependence Depression Diabetes Gastric reflux History of steroid therapy Hypertension Leg cramps Non-smoker Shortness of breath on exertion Sleep apnea Home Medications biotin 5,000 mcg sublingual tablet 5,000 mcg sublingual DAILY 07/07/18 [History Last Taken Unknown] hydrochlorothiazide 12.5 mg tablet 25 mg PO DAILY 07/07/18 [History Last Taken Unknown] duloxetine 60 mg capsule,delayed release 60 mg PO DAILY 05/13/20 [History Last Taken Unknown] lisinopril 20 mg tablet 20 mg PO DAILY 05/13/20 [History Last Taken 07/19/21 06:15] calcium carbonate 600 mg-vitamin D3 5 mcg (200 unit) tablet 1 tab PO BID 07/17/21 [History Last Taken Unknown] cholecalciferol (vitamin D3) 25 mcg (1,000 unit) tablet (Vitamin D3) 25 mcg PO DAILY 07/17/21 [History Last Taken Unknown] liraglutide 0.6 mg/0.1 mL (18 mg/3 mL) subcutaneous pen injector (Victoza 2-Pasquale) 12 mg subcut DAILY 07/17/21 [History Last Taken Unknown] omeg3-epa 150 mg-dha 100 mg-fish oil-flaxseed oil 333 mg-E 61 unit cap (TheraTears Nutrition) 3 cap PO DAILY 07/17/21 [History Last Taken Unknown] omeprazole 40 mg capsule,delayed release 40 mg PO DAILY 07/17/21 [History Last Taken Unknown] baclofen 20 mg tablet 20 mg PO TID 07/19/21 [History Last Taken Unknown] Allergy/AdvReac Type Severity Reaction Status Date / Time codeine AdvReac Other Verified 11/27/21 09:33 Surgical History Hx of foot surgery Hx of LASIK Social History Smoking Status: Never smoker ROS ROS ED Constitutional Constitutional ED: Denies chills or weight loss Eyes Eyes: Denies change in vision or diplopia ENT ENT ED: Denies ear pain, rhinorrhea or sore throat Cardiovascular Cardiovascular: Reports chest pain; Denies palpitations or racing heartbeat Respiratory/Chest Respiratory/Chest: Denies cough or dyspnea Gastrointestinal Gastrointestinal: Denies abdominal pain, constipation, diarrhea, nausea or vomiting Genitourinary Genitourinary ED: Denies dysuria, hematuria or urinary frequency Musculoskeletal Musculoskeletal: Denies arthralgias or myalgias Integumentary Denies abscess or rash Neurologic Neurologic: Denies headache(s) or weakness Psychiatric Psychiatric: Denies anxiety, depression, suicidal ideation or suicidal thoughts Endocrine Endocrinology: Denies polydipsia, polyphagia or polyuria Allergic/Immunologic Allergic/Immunologic ED: Denies mouth swelling, tongue swelling or urticaria EXAM Physical Exam Const Vital Signs: 11/27/21 09:33 11/27/21 10:43 11/27/21 11:19 Temperature 96.4 F L Temperature Source Temporal Pulse Rate 81 71 88 Respiratory Rate 16 17 Blood Pressure 175/84 H 154/78 H Blood Pressure Mean 114 103 Pulse Ox 98 96 Oxygen Delivery Method Room Air Room Air 11/27/21 12:05 Temperature Temperature Source Pulse Rate 73 Respiratory Rate 15 Blood Pressure 129/77 H Blood Pressure Mean 94 Pulse Ox Oxygen Delivery Method Positive well nourished, well developed and obese General Appearance ED: well developed Nutritional Appearance: obese HEENT Reports normocephalic, head/scalp atraumatic and moist mucous membranes Eyes PERRL and EOMs intact bilaterally Neck no lymphadenopathy, supple and no JVD Resp normal respiratory effort and clear to auscultation bilaterally Cardio regular rate, regular rhythm and no murmurs GI normal to inspection, nondistended, normoactive bowel sounds and non-tender Palpation: soft Back/Spine no CVA tenderness and normal ROM Extremity normal to inspection General Extremety ED: Negative for edema General Extremity: Negative for edema Neuro oriented x3 and CN's II-XII intact bilaterally Sensorium / Orientation: alert Motor Exam: strength 5/5 throughout Psych mental status grossly normal Mood & Affect: Negative for depressed or tearful Skin no rashes or lesions noted and no wounds MDM MDM MDM Narrative Medical decision making narrative: My interpretation of the chest x-ray is no acute process. CBC BMP troponin and D-dimer are all within the normal range. Her EKG is a normal sinus rhythm. This point I do not believe the patient has ACS dissection or embolism. I think the patient can be discharged home with supportive care. Would have her follow-up with primary care return if worsening or concerns. Lab Data Attestation: I reviewed the patient's lab results. Labs: Laboratory Results - last 24 hr 11/27/21 11/27/21 11/27/21 10:12 10:12 10:12 WBC 7.8 RBC 4.55 Hgb 13.0 Hct 40.6 MCV 89.2 MCH 28.6 MCHC 32.0 RDW Std Deviation 43.1 RDW Coeff of Judy 13.2 Plt Count 320 MPV 10.9 Immature Gran % (Auto) 0.600 Neut % (Auto) 61.1 Lymph % (Auto) 28.5 [place] % (Auto) 7.4 Eos % (Auto) 1.9 Baso % (Auto) 0.5 Absolute Neuts (auto) 4.8 Absolute Lymphs (auto) 2.23 Nucleated RBC % 0 D-Dimer Quant (PE/DVT) 0.42 Sodium 138 Potassium 4.0 Chloride 102 Carbon Dioxide 29.0 Anion Gap 7 BUN 16 Creatinine 1.03 H Estim Creat Clear Calc 62.53 Est GFR (MDRD) Af Amer 73 Est GFR (MDRD) Non-Af 61 BUN/Creatinine Ratio 15.5 Glucose 177 H Calcium 9.4 Troponin I High Sens 4 Radiography Diagnostic Testing: Clinical Impression(s) from Imaging Studies Chest X-Ray 11/27/21 11:12 IMPRESSION: Normal x-ray examination of the chest. Electronically Signed: Bobby Calle MD at 11:39 EDT , EKG Initial EKG: Attestation: I personally reviewed and interpreted this EKG as follows: Comments: Normal sinus rhythm with a ventricular rate of 76 bpm. Discharge Plan Triage Chief Complaint: Chest Pain ED Provider: Miguelito Palmer Dx/Rx/DC Orders Clinical Impression: Chest pain Instructions: ED Chest Pain, Uncertain Cause Prescriptions: No Action hydrochlorothiazide 12.5 tablet 25 mg PO DAILY biotin 5,000 MCG tablet, sublingual 5,000 mcg sublingual DAILY lisinopril 20 MG tablet 20 mg PO DAILY duloxetine 60 MG capsule,delayed release(DR/EC) 60 mg PO DAILY calcium carbonate-vitamin D3 [Calcium + D] 600 mg-5 mcg (200 unit) Tablet 1 tab PO BID omeprazole 40 mg capsule,delayed release(DR/EC) 40 mg PO DAILY Label Comments: TAKE 1 CAPSULE BY MOUTH EVERY DAY cholecalciferol (vitamin D3) [Vitamin D3] 25 mcg (1,000 unit) Tablet 25 mcg PO DAILY TheraTears Nutrition [phone] fl-vz-ru-unit Capsule 3 cap PO DAILY Victoza 2-Pasquale 0.6 mg/0.1 mL (18 mg/3 mL) pen injector 12 mg SUBCUT DAILY Label Comments: INJECT 1.2 MG UNDER THE SKIN ONCE DAILY baclofen 20 mg Tablet 20 mg PO TID Primary Care Provider: Itzel Eaton NP Referrals: Itzel Eaton NP, CARDIAC MONITOR-C [Primary Care Provider] - 3-5 Days Disposition Disposition: Home, Self Care
[2021-11-27] MEDS: Aspirin 81 MG TAB.CHEW 324 MG PO (11:18)
[2021-11-27 11:19] VITALS: PULSE 88
[2021-11-27 11:31] LABS: Absolute Lymphocyte Count 2.23 X10^3/uL (0.83-4.51); Absolute Neutrophil Count 4.8 X10^3/uL (2.0-7.7); Basophil# 0.04 X10^3/uL; Basophil% 0.5 % (0-1); Eosinophil# 0.15 X10^3/uL; Eosinophils% 1.9 % (0-5); Hematocrit 40.6 % (37-47); Lymphocyte # 2.23 X10^3/ul (0.83-4.51); Lymphocyte % 28.5 % (19-41); Mean Corpuscular Hgb 28.6 pg (27.0-32.0); Mean Corpuscular Volume 89.2 fL (81-99); Mean Platelet Vol. 10.9 fl (6.2-12.0); Monocyte# 0.58 X10^3/uL; Monocyte% 7.4 % (0-10); NRBC Flagged by Analyzer 0 % (0-5); Neutrophil # 4.77 X10^3/uL (2.7-7.7); Neutrophil % 61.1 % (47-70); Platelet Count 320 K/mm3 (150-450); RBC Distribution Width CV 13.2 % (11.6-14.6); RBC Distribution Width SD 43.1 fl (35.1-43.9); Red Blood Count 4.55 M/mm3 (4.2-5.4); White Blood Count 7.8 K/mm3 (4.4-11.0)
[2021-11-27 11:33] LABS: D-Dimer Quantitative (DVT/PE) 0.42 FEU/ug/m (0.27-0.49)
[2021-11-27 11:42] LABS: Anion Gap 7 (5-15); BUN 16 mg/dL (7-18); BUN/Creat Ratio 15.5 RATIO (10-20); Calcium,Total 9.4 mg/dL (8.5-10.1); Chloride 102 mmol/L (98-107); Creatinine, Serum 1.03 mg/dL (0.55-1.02); EST Glomerular Filtration Rate 61 mL/min (>60); Est Glom Filt Rate - Afr Amer 73 mL/min (>60); Estimated Creatinine Clearance 62.53 ml/min; Glucose 177 mg/dL (74-106); Sodium Level 138 mmol/L (136-145); Troponin-I HS 4 pg/mL (3.0-54.0)
[2021-11-27 12:05] VITALS: BP 129/77; PULSE 73; RESP 15
[2021-11-27 12:15] VITALS: BP 129/77; PULSE 73; RESP 18; O2SAT 98
== END 2021-11-27 12:15 | disposition home or self-care (01) ==
PROVIDERS: Emergency Provider Emergency Medicine; PCP Nurse Practitioner Family; Visit Provider Emergency Medicine
DX: R07.89 Other chest pain (principal); E11.9 Type 2 diabetes mellitus without complications; I10 Essential (primary) hypertension; R68.84 Jaw pain; Z79.85 Long-term (current) use of injectable non-insulin antidiabetic drugs; Z79.899 Other long term (current) drug therapy; K21.9 Gastro-esophageal reflux disease without esophagitis; M19.90 Unspecified osteoarthritis, unspecified site; G47.30 Sleep apnea, unspecified; R06.02 Shortness of breath
CPT/HCPCS: 71045; 80048; 84484; 85025; 85379; 93005; 99285; A4216

== ENCOUNTER 2022-11-24 02:33 | Emergency (ER) | payer OTHER, SELFPAY ==
[2022-11-24 02:33] VITALS: BP 147/70; PULSE 90; RESP 21; O2SAT 98
[2022-11-24 02:36] VITALS: BP 186/92; PULSE 88; RESP 18; TEMP 36.7; O2SAT 97; BMI 42.1
--- NOTE | 2022-11-24 03:22 | RAD_ITS ---
EXAM: XR CHEST, 2 VIEWS CLINICAL INDICATION: , Chest tightness TECHNIQUE: Frontal and lateral views of the chest. COMPARISON: November 27, 2021, July 07, 2018 FINDINGS: LUNGS AND PLEURAL SPACES: Unremarkable. No consolidation or edema. No pneumothorax. No effusion. HEART: Unremarkable. Cardiac silhouette not enlarged. MEDIASTINUM: Central airways and mediastinal contour are unremarkable. BONES/JOINTS: Unremarkable. SOFT TISSUES: Unremarkable. RAD/Chest PA and Lateral IMPRESSION: No radiographic evidence of acute cardiopulmonary disease. Electronically Signed: Gabi Baker MD at 3:44 EDT ,
[2022-11-24 03:31] LABS: Absolute Lymphocyte Count 2.53 X10^3/uL (0.83-4.51); Basophil# 0.06 X10^3/uL; Basophil% 0.6 % (0-1); Eosinophil# 0.23 X10^3/uL; Eosinophils% 2.4 % (0-5); Hemoglobin 11.8 g/dL (12.0-15.0); Lymphocyte # 2.53 X10^3/ul (0.83-4.51); Lymphocyte % 26.5 % (19-41); Mean Corp Hgb Conc 31.9 g/dL (32-36); Mean Corpuscular Volume 87.9 fL (81-99); Mean Platelet Vol. 10.3 fl (6.2-12.0); Monocyte# 0.59 X10^3/uL; Monocyte% 6.2 % (0-10); NRBC Flagged by Analyzer 0 % (0-5); Neutrophil # 6.03 X10^3/uL (2.7-7.7); Neutrophil % 63.3 % (47-70); Platelet Count 310 K/mm3 (150-450); RBC Distribution Width CV 13.3 % (11.6-14.6); RBC Distribution Width SD 42.3 fl (35.1-43.9); Red Blood Count 4.21 M/mm3 (4.2-5.4); White Blood Count 9.5 K/mm3 (4.4-11.0)
[2022-11-24 03:33] VITALS: BP 147/86; PULSE 82; RESP 16; O2SAT 97
[2022-11-24] MEDS: 0.9% Normal Saline (1000mL) 1,000 ML 1000 ML IV (03:47)
[2022-11-24 04:12] LABS: Anion Gap 8 (5-15); BUN 22 mg/dL (7-18); Calcium,Total 9.2 mg/dL (8.5-10.1); Chloride 98 mmol/L (98-107); Creatinine, Serum 1.16 mg/dL (0.55-1.02); EST Glomerular Filtration Rate 53 mL/min (>60); Est Glom Filt Rate - Afr Amer 64 mL/min (>60); Estimated Creatinine Clearance 54.92 ml/min; Glucose 308 mg/dL (74-106); Potassium 3.8 mmol/L (3.5-5.1); Sodium Level 135 mmol/L (136-145); Troponin-I HS 5 pg/mL (3.0-54.0)
[2022-11-24] MEDS: Insulin Lispro 100 UNIT/ML INSULN.PEN 8 UNIT SC (04:44)
--- NOTE | 2022-11-24 04:44 | EDS_ITS ---
HPI History of Present Illness Chief Complaint: Chest Pain Detail of Chief Complaint: Symptoms which include chest pain, elevated blood sugar Informant: patient Onset/Context/Timing Onset: Days Context: Sudden Onset Timing: Continuous Quality: Chest tightness, shortness of breath, slight cough and elevated blood sugar Location: Midsternal Current Severity: Mild Maximum Severity: Moderate Worsened by: Activity Relieved by: Nothing Associated Symptoms Associated Symptoms: Nausea and shortness of breath Narrative Narrative: Patient is a 47-year-old woman with 2 diabetes, hypertension, hypercholesterolemia and GERD who was instructed to come to the emergency room because of midsternal chest tightness that has been present since . Nothing alleviates her pain. The pain does get worse with activity. There is no radiation. There is associated shortness of breath. Patient does report nausea without vomiting or diaphoresis. Patient denies black or maroon-colored stool. Patient denies family history of coronary disease at a young age. Patient states her blood sugars have been elevated for the past 2 weeks. She was prescribed Ozempic. She states there are no pharmacies that have it. She is contacted her doctor. She denies fever or chills. She denies ocular, visual or auditory symptoms. She does report mild congestion. 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 She denies urologic symptoms. She denies paresthesia, anesthesia or motor weakness. Denies trouble with balance or coordination. Prior similar symptoms: No Recent Illness/Hospitalization: No [facility] Medical History Anxiety Arthritis Back pain CPAP (continuous positive airway pressure) dependence Depression Diabetes Gastric reflux History of steroid therapy Hypertension Leg cramps Non-smoker Shortness of breath on exertion Sleep apnea Home Medications biotin 5,000 mcg sublingual tablet 5,000 mcg sublingual DAILY 07/07/18 [History Last Taken Unknown] hydrochlorothiazide 12.5 mg tablet 25 mg PO DAILY 07/07/18 [History Last Taken Unknown] duloxetine 60 mg capsule,delayed release 60 mg PO DAILY 05/13/20 [History Last Taken Unknown] lisinopril 20 mg tablet 20 mg PO DAILY 05/13/20 [History Last Taken 07/19/21 06:15] calcium carbonate 600 mg-vitamin D3 5 mcg (200 unit) tablet 1 tab PO BID 07/17/21 [History Last Taken Unknown] cholecalciferol (vitamin D3) 25 mcg (1,000 unit) tablet (Vitamin D3) 25 mcg PO DAILY 07/17/21 [History Last Taken Unknown] liraglutide 0.6 mg/0.1 mL (18 mg/3 mL) subcutaneous pen injector (Victoza 2-Pasquale) 12 mg subcut DAILY 07/17/21 [History Last Taken Unknown] omeg3-epa 150 mg-dha 100 mg-fish oil-flaxseed oil 333 mg-E 61 unit cap (TheraTears Nutrition) 3 cap PO DAILY 07/17/21 [History Last Taken Unknown] omeprazole 40 mg capsule,delayed release 40 mg PO DAILY 07/17/21 [History Last Taken Unknown] baclofen 20 mg tablet 20 mg PO TID 07/19/21 [History Last Taken Unknown] Allergy/AdvReac Type Severity Reaction Status Date / Time codeine AdvReac Other Verified 11/24/22 02:39 Surgical History Hx of foot surgery Hx of LASIK Social History (Updated 11/24/22 @ 04:[address] Gary Dougherty MD) household members: spouse and children Smoking Status: Never smoker ROS ROS ED Constitutional Constitutional ED: Denies chills, sweats or weight loss Eyes Eyes: Denies blurry vision, change in vision or diplopia ENT ENT ED: Reports rhinorrhea and sore throat; Denies ear pain Cardiovascular Cardiovascular: Denies orthopnea or paroxysmal nocturnal dyspnea Respiratory/Chest Respiratory/Chest: Reports cough, dyspnea on exertion and other Details: The dyspnea with exertion has been present for several weeks. ; Denies dyspnea, orthopnea, paroxysmal nocturnal dyspnea or sputum Gastrointestinal Gastrointestinal: Denies abdominal pain, diarrhea or vomiting Genitourinary Genitourinary ED: Denies dysuria, hematuria or urinary frequency Musculoskeletal Musculoskeletal: Denies arthralgias or myalgias Integumentary Denies rash Neurologic Neurologic: Denies headache(s) or paresthesias Endocrine Endocrinology: Reports polydipsia and polyuria; Denies cold intolerance or heat intolerance Hematologic/Lymphatic Hematologic/Lymphatic: Reports systems reviewed and no addt'l complaints, except as documented EXAM Physical Exam Const Vital Signs: 11/24/22 02:36 11/24/22 02:33 10/01/23 03:33 Temperature 98.0 F Temperature Source Temporal Pulse Rate 88 90 82 Respiratory Rate 18 21 H 16 Blood Pressure 186/92 H 147/70 H 147/86 H Blood Pressure Mean 123 95 106 Pulse Ox 97 98 97 Oxygen Delivery Method Room Air Room Air Room Air Positive well nourished, well developed and obese General Appearance ED: well developed and NAD; Negative for cyanotic, diaphoretic or pallor Nutritional Appearance: obese HEENT Reports moist mucous membranes HEENT Narrative: Head is normocephalic and atraumatic. Ears are normal. External auditory canal is normal. TMs are normal. Nares are patent with no discharge. Posterior pharynx out erythema or exudate. Uvula is midline Eyes PERRL and EOMs intact bilaterally General Eye ED: Negative for pale conjunctiva or scleral icterus Neck no lymphadenopathy, supple and no JVD Neck Narrative: Acute is midline. She has no dysphonia. Chest Wall inspection of chest normal and palpation of chest normal Resp normal respiratory effort and clear to auscultation bilaterally Cardio regular rate, regular rhythm, S1 normal heart sound, S2 normal heart sound and no murmurs GI normal to inspection, nondistended, normoactive bowel sounds, non-tender and non-distended Back/Spine no CVA tenderness Back/Spine Narrative: Patient in the back normal. Extremity normal to inspection Extremity Narrative: There is no asymmetry, swelling, discoloration, leg vein distention, palpable cords or tenderness along the distribution of the deep venous system. General Extremety ED: Negative for edema or tenderness General Extremity: Negative for edema Neuro oriented x3, CN's II-XII intact bilaterally and no sensory deficits noted Sensorium / Orientation: alert Motor Exam: strength 5/5 throughout Psych mental status grossly normal Skin no rashes or lesions noted, no wounds and skin turgor normal General Skin Exam: Negative for jaundice or pallor MDM MDM MDM Narrative Medical decision making narrative: He is diabetic middle-aged with hypertension hypercholesterolemia Will obtain E KG and troponin to evaluate for atypical cardiac presentation. This may most likely represent a viral illness. Suspect her elevated blood sugars due to the fact that she is unable to fill her prescription. She was administered insulin in the department. She does have a prescription for another medication. Patient was informed that her troponin and EKG normal and essentially rules out cardiac cause. She was told her blood sugar was 308 and reason she received insulin. Her CO2 and anion gap were normal her. Lab Data Labs: Laboratory Results - last 24 hr 11/24/22 03:17 WBC 9.5 RBC 4.21 Hgb 11.8 L Hct 37.0 MCV 87.9 MCH 28.0 MCHC 31.9 L RDW Std Deviation 42.3 RDW Coeff of Judy 13.3 Plt Count 310 MPV 10.3 Immature Gran % (Auto) 1.000 H Neut % (Auto) 63.3 Lymph % (Auto) 26.5 Kimball % (Auto) 6.2 Eos % (Auto) 2.4 Baso % (Auto) 0.6 Absolute Neuts (auto) 6.0 Absolute Lymphs (auto) 2.53 Nucleated RBC % 0 Sodium 135 L Potassium 3.8 Chloride 98 Carbon Dioxide 29.0 Anion Gap 8 BUN 22 H Creatinine 1.16 H Estim Creat Clear Calc 54.92 Est GFR (MDRD) Af Amer 64 Est GFR (MDRD) Non-Af 53 L BUN/Creatinine Ratio 19.0 Glucose 308 H Calcium 9.2 Troponin I High Sens 5 Radiography Chest X-Ray - ED: 2 View and Read by ED Physician (Chest x-ray was independently reviewed interpreted by me as negative for any acute process. Cardiac silhoue tte size normal. Lung parenchyma normal. Perihilar region normal. Osseous structures are unremarkable.) Diagnostic Testing: Clinical Impression(s) from Imaging Studies Chest X-Ray 11/24/22 03:22 IMPRESSION: No radiographic evidence of acute cardiopulmonary disease. Electronically Signed: Gabi Baker MD at 3:44 EDT Reading Location ID and State: [facility] / [place] Tel , Service support , EKG Initial EKG: Attestation: I personally reviewed and interpreted this EKG as follows: Interpretation: Sinus Rhythm (Rate is 90. EKG is normal. TN interval is 38 ms. Cures duration 84 ms. QT durations are 64 ms. [place] is normal.) Differential Diagnosis Chest pain/SOB: pulmonary embolism Reason(s) PE less likely: Positive for PERC negative, not tachycardic and not hypoxic, ACS ACS: Positive for no evidence of ACS based on cardiac biomarkers and EKG without ischemia, pneumothorax Reason(s) pneumothorax less likely: Positive for bilateral breath sounds, pneumonia Reason(s) pneumonia less likely: Positive for no infiltrate on CXR, no elevation in WBC count, no noted fever and symptoms not consistent with acute infection and aortic dissection Reason(s) Aortic dissection less likely:: Positive for normal vascular exam, normal neurological exam, no widened mediastinum on CXR, pain not sudden onset, no ripping/tearing pain, no pain to back and blood pressure appropriate in ED Treatment and Re-Evaluation :: Plan is to discharge to home with appropriate home-going instructions. Discharge Plan Triage Chief Complaint: Chest Pain ED Provider: Gary Dougherty Dx/Rx/DC Orders Clinical Impression: Type 2 diabetes mellitus with hyperglycemia, Chest tightness, History of hypertension Instructions: ED Chest Pain, Noncardiac, ED Diabetic Hyperglycemia Prescriptions: No Action hydrochlorothiazide 12.5 tablet 25 mg PO DAILY biotin 5,000 MCG tablet, sublingual 5,000 mcg sublingual DAILY lisinopril 20 MG tablet 20 mg PO DAILY duloxetine 60 MG capsule,delayed release(DR/EC) 60 mg PO DAILY calcium carbonate-vitamin D3 [Calcium + D] 600 mg-5 mcg (200 unit) Tablet 1 tab PO BID omeprazole 40 mg capsule,delayed release(DR/EC) 40 mg PO DAILY Patient Comments: TAKE 1 CAPSULE BY MOUTH EVERY DAY cholecalciferol (vitamin D3) [Vitamin D3] 25 mcg (1,000 unit) Tablet 25 mcg PO DAILY [employer] [phone] [id number] Capsule 3 cap PO DAILY Victoza 2-Pasquale 0.6 mg/0.1 mL (18 mg/3 mL) pen injector 12 mg SUBCUT DAILY Patient Comments: INJECT 1.2 MG UNDER THE SKIN ONCE DAILY baclofen 20 mg Tablet 20 mg PO TID Primary Care Provider: Itzel Eaton NP Referrals: Itzel Eaton NP, [facility] [Primary Care Provider] - As Needed Disposition Disposition: Home, Self Care
[2022-11-24 05:32] VITALS: BP 116/79; PULSE 85; RESP 16; O2SAT 99
== END 2022-11-24 05:35 | disposition home or self-care (01) ==
PROVIDERS: Emergency Provider Emergency Medicine; PCP Nurse Practitioner Family; Visit Provider Emergency Medicine
DX: E11.65 Type 2 diabetes mellitus with hyperglycemia (principal); R06.02 Shortness of breath; R07.89 Other chest pain; I10 Essential (primary) hypertension; E78.00 Pure hypercholesterolemia, unspecified; E66.9 Obesity, unspecified; G47.30 Sleep apnea, unspecified; Z99.89 Dependence on other enabling machines and devices
CPT/HCPCS: 71046; 80048; 84484; 85025; 93005; 96360; 99284; J7030